=== PATIENT | male | born 1960 | race Asian ===

== ENCOUNTER 2023-10-26 09:20 | Emergency (ER) | payer OTHER, MEDICAID ==
[~2023-10-26] VITALS: Ht 162.6 cm; Wt 65.8 kg
[2023-10-26 09:23] VITALS: BP 145/80; PULSE 80; RESP 16; TEMP 97.6; O2SAT 95
[2023-10-26 11:03] LABS: BASOPHILS # (AUTO) 0.1 K/uL (0.00-0.22); BASOPHILS % (AUTO) 0.9 % (0.0-2.0); EOSINOPHILS % (AUTO) 0.5 % (0.0-4.0); HEMATOCRIT 38.9 % (36-52); LYMPHOCYTES # (AUTO) 1.1 K/uL (2.0-11.5); LYMPHOCYTES % (AUTO) 10.6 % (20.5-51.1); MEAN CORPUSCULAR HEMOGLOBIN 26 pg (27-31); MEAN CORPUSCULAR HGB CONC 34 g/dL (33-37); MEAN CORPUSCULAR VOLUME 78.2 fL (80-94); MONOCYTES # (AUTO) 0.6 K/uL (0.8-1.0); MONOCYTES % (AUTO) 5.5 % (1.7-9.3); NEUTROPHILS # (AUTO) 8.9 K/uL (1.8-7.7); NEUTROPHILS % (AUTO) 82.5 % (42.2-75.2); PLATELET COUNT (AUTO) 269 K/uL (140-450); RED BLOOD CELL COUNT(AUTO) 4.97 MIL/uL (4.20-6.10); RED CELL DISTRIBUTION WIDTH 14.1 % (11.6-13.7); WHITE BLOOD COUNT (AUTO) 10.8 K/uL (4.8-10.8)
[2023-10-26 11:24] LABS: ANION GAP 9.5 (8-16); CALCIUM 9.5 mg/dL (8.5-10.1); CARBON DIOXIDE 33.9 mmol/L (21-32); CREATININE 0.7 mg/dL (0.6-1.3); POTASSIUM 4.4 mmol/L (3.5-5.1)
[2023-10-26 11:38] LABS: APPEARANCE,URINE CLOUDY (CLEAR); BILIRUBIN,URINE NEGATIVE (NEGATIVE); BLOOD, URINE 3+ (NEGATIVE); COLOR,URINE RED (YELLOW); LEUKOCYTE ESTERASE ,URINE 2+ (NEGATIVE); NITRITE, URINE POSITIVE (NEGATIVE); PH,URINE 7.5 (5.0-9.0); PROTEIN,URINE 3+ (NEGATIVE); UGLUCOSE TRACE (NEGATIVE)
[2023-10-26 11:48] LABS: BACTERIA,URINE 10-30 (MOD) /HPF (None Seen); RBC,URINE 50-80 /HPF (0-5); SQUAMOUS EPITHELIAL CELL,UR 0-3 (FEW) /LPF (0-3 (FEW)); WBC,URINE 16-25 (MOD) /HPF (0-5)
[2023-10-26] MEDS ORDERED: NITR100C7 PO (12:05)
[2023-10-26 12:52] VITALS: BP 117/64; PULSE 72; RESP 17; TEMP 97.8; O2SAT 99
== END 2023-10-26 12:44 | disposition home or self-care (01) ==
LOC: MED 09:20
DX: N39.0 Urinary tract infection, site not specified (principal); R31.9 Hematuria, unspecified; Z79.899 Other long term (current) drug therapy
CPT/HCPCS: 36415; 51701; 80048; 81001; 85025; 87086; 99284

== ENCOUNTER 2023-11-21 06:35 | Inpatient (IN) | payer OTHER, MEDICAID ==
[~2023-11-21] VITALS: Ht 162.6 cm; Wt 63.5 kg
[~2023-11-21 06:35] MED LIST: NITR100C7 PO
[2023-11-21 06:48] VITALS: BP 158/88; PULSE 80; RESP 14; TEMP 97.2; O2SAT 96
[2023-11-21 07:30] VITALS: O2SAT 100
[2023-11-21 07:53] LABS: BASOPHILS # (AUTO) 0.1 K/uL (0.00-0.22); EOSINOPHILS # (AUTO) 0.2 K/uL (0-0.4); EOSINOPHILS % (AUTO) 1.9 % (0.0-4.0); HEMATOCRIT 42.5 % (36-52); HEMOGLOBIN 13.9 g/dL (12.0-18.0); LYMPHOCYTES # (AUTO) 1.4 K/uL (2.0-11.5); LYMPHOCYTES % (AUTO) 16.7 % (20.5-51.1); MEAN CORPUSCULAR HEMOGLOBIN 26 pg (27-31); MEAN CORPUSCULAR HGB CONC 33 g/dL (33-37); MEAN CORPUSCULAR VOLUME 79.6 fL (80-94); MONOCYTES # (AUTO) 0.5 K/uL (0.8-1.0); MONOCYTES % (AUTO) 5.8 % (1.7-9.3); NEUTROPHILS # (AUTO) 6.3 K/uL (1.8-7.7); NEUTROPHILS % (AUTO) 74.6 % (42.2-75.2); PLATELET COUNT (AUTO) 284 K/uL (140-450); RED BLOOD CELL COUNT(AUTO) 5.34 MIL/uL (4.20-6.10); RED CELL DISTRIBUTION WIDTH 14.4 % (11.6-13.7); WHITE BLOOD COUNT (AUTO) 8.4 K/uL (4.8-10.8)
[2023-11-21 08:08] LABS: ANION GAP 12.3 (8-16); CALCIUM 9.7 mg/dL (8.5-10.1); CARBON DIOXIDE 29.7 mmol/L (21-32); CREATININE 0.8 mg/dL (0.6-1.3)
[2023-11-21 08:10] LABS: ALBUMIN 3.9 g/dL (3.4-5.0); BILIRUBIN,DIRECT 0.2 mg/dL (0.0-0.3); TOTAL BILIRUBIN 0.6 mg/dL (0.0-1.0)
[2023-11-21] MEDS: KETOROLAC 30 MG/ML VIAL IVP ONE (08:19)
[2023-11-21] MEDS: MORPHINE SULFATE 4 MG/ML SYR IVP ONE (08:48)
[2023-11-21] MEDS: ONDANSETRON 4 MG/2 ML VIAL IVP ONE (08:48)
[2023-11-21] MEDS ORDERED: FINA5TAB5 PO (12:43)
[2023-11-21] MEDS ORDERED: NITR100C15 PO (12:43)
[2023-11-21] MEDS ORDERED: TAMS0.4C97 PO (12:43)
[2023-11-21] MEDS ORDERED: ONDANSETRON 4 MG/2 ML VIAL IVP PRN ×2 (12:55→15:30)
[2023-11-21] MEDS ORDERED: ACETAMINOPHEN 325 MG TAB PO PRN (12:55)
[2023-11-21] MEDS ORDERED: MORPHINE SULFATE 2 MG/ML SYR IVP PRN (12:55)
[2023-11-21] MEDS: NACL 0.9% 1,000 ML IV SCH (12:55)
[2023-11-21] MEDS ORDERED: HYDROcodone/APAP 5/325 MG 1 TAB TAB PO PRN (12:55)
[2023-11-21] MEDS ORDERED: MELATONIN 3 MG TAB PO PRN (12:55)
[2023-11-21] MEDS: fentaNYL citrate 0.05 MG/ML VIAL ONE (14:19)
[2023-11-21] MEDS: MIDAZOLAM 2 MG/2 ML VIAL ONE (14:19)
[2023-11-21] MEDS: BUPIVACAINE-MPF 0.25% 30 ML VIAL INJ ONE (14:20)
[2023-11-21] MEDS: ceFAZolin 1,000 MG VIAL ONE (14:28)
[2023-11-21] MEDS: LIDOCAINE 2% 100 MG/5 ML UJET TP ONE (14:32)
[2023-11-21] MEDS: LIDOCAINE 2% 100 MG/5 ML SYR IVP ONE (14:32)
[2023-11-21] MEDS: LIDOCAINE/EPI 1% 1:100000 20 ML VIAL INJ ONE (14:33)
[2023-11-21] MEDS ORDERED: MEPERIDINE 25 MG/ML SYR IVP PRN (15:30)
[2023-11-21] MEDS ORDERED: diphenhydrAMINE 50 MG/ML VIAL IVP PRN (15:30)
[2023-11-21] MEDS ORDERED: HYDROmorphone 1 MG/ML AMP IVP PRN (15:30)
[2023-11-21 16:00] VITALS: BP 89/49; PULSE 68; PULSE 69; RESP 12; TEMP 98.4; O2SAT 97
[2023-11-21] MEDS: METOCLOPRAMIDE 10 MG/2 ML INJ VIAL ONE (16:13)
[2023-11-21] MEDS: ONDANSETRON 4 MG/2 ML VIAL ONE (16:13)
[2023-11-21] MEDS: LACTATED RINGERS 1,000 ML IV SCH (16:56)
[2023-11-21 21:03] VITALS: BP 108/55; PULSE 85; RESP 18; TEMP 95.7; O2SAT 97
[2023-11-22] VITALS (7 sets, daily range): BP systolic 95–111; BP diastolic 50–60; PULSE 66–91; RESP 16–18; TEMP 97.2–99.6; O2SAT 93–100
[2023-11-22 06:37] LABS: BASOPHILS # (AUTO) 0.1 K/uL (0.00-0.22); BASOPHILS % (AUTO) 0.7 % (0.0-2.0); EOSINOPHILS # (AUTO) 0.3 K/uL (0-0.4); EOSINOPHILS % (AUTO) 3.7 % (0.0-4.0); HEMATOCRIT 33.2 % (36-52); LYMPHOCYTES # (AUTO) 1.7 K/uL (2.0-11.5); LYMPHOCYTES % (AUTO) 18.1 % (20.5-51.1); MEAN CORPUSCULAR HEMOGLOBIN 26 pg (27-31); MEAN CORPUSCULAR HGB CONC 33 g/dL (33-37); MEAN CORPUSCULAR VOLUME 78.6 fL (80-94); MONOCYTES # (AUTO) 0.7 K/uL (0.8-1.0); NEUTROPHILS # (AUTO) 6.4 K/uL (1.8-7.7); NEUTROPHILS % (AUTO) 69.5 % (42.2-75.2); PLATELET COUNT (AUTO) 230 K/uL (140-450); RED BLOOD CELL COUNT(AUTO) 4.22 MIL/uL (4.20-6.10); RED CELL DISTRIBUTION WIDTH 14.4 % (11.6-13.7); WHITE BLOOD COUNT (AUTO) 9.2 K/uL (4.8-10.8)
[2023-11-22 07:06] LABS: ALBUMIN 2.6 g/dL (3.4-5.0); ANION GAP 11.3 (8-16); CALCIUM 8.2 mg/dL (8.5-10.1); CREATININE 0.8 mg/dL (0.6-1.3); MAGNESIUM 1.8 mg/dL (1.8-2.4); PHOSPHORUS 3.8 mg/dL (2.5-4.9); POTASSIUM 4.3 mmol/L (3.5-5.1); TOTAL BILIRUBIN 0.9 mg/dL (0.0-1.0); TOTAL PROTEIN, SERUM 6.2 g/dL (6.4-8.2)
[2023-11-22 15:44] LABS: BILIRUBIN,URINE NEGATIVE (NEGATIVE); BLOOD, URINE 3+ (NEGATIVE); LEUKOCYTE ESTERASE ,URINE TRACE (NEGATIVE); NITRITE, URINE NEGATIVE (NEGATIVE); UGLUCOSE NEGATIVE (NEGATIVE); UROBILINOGEN,URINE 0.2 EU/dL (0.2 - 1)
[2023-11-22 15:49] LABS: COLOR,URINE RED (YELLOW)
[2023-11-22 16:04] LABS: APPEARANCE,URINE SL CLOUDY (CLEAR); PH,URINE 6.5 (5.0-9.0)
[2023-11-22 16:05] LABS: PROTEIN,URINE TRACE (NEGATIVE)
[2023-11-23] VITALS: BP 114/66; PULSE 64; PULSE 74; RESP 18; TEMP 98.7; O2SAT 96
[2023-11-23 04:00] VITALS: BP 117/61; PULSE 62; PULSE 64; RESP 18; TEMP 97.4; O2SAT 97
[2023-11-23 05:48] LABS: BASOPHILS # (AUTO) 0.1 K/uL (0.00-0.22); BASOPHILS % (AUTO) 0.6 % (0.0-2.0); EOSINOPHILS # (AUTO) 0.5 K/uL (0-0.4); EOSINOPHILS % (AUTO) 4.8 % (0.0-4.0); HEMATOCRIT 32.1 % (36-52); HEMOGLOBIN 10.7 g/dL (12.0-18.0); LYMPHOCYTES # (AUTO) 2.3 K/uL (2.0-11.5); MEAN CORPUSCULAR HEMOGLOBIN 26 pg (27-31); MEAN CORPUSCULAR HGB CONC 33 g/dL (33-37); MEAN CORPUSCULAR VOLUME 78.9 fL (80-94); MONOCYTES % (AUTO) 10.4 % (1.7-9.3); NEUTROPHILS % (AUTO) 61.2 % (42.2-75.2); PLATELET COUNT (AUTO) 231 K/uL (140-450); RED BLOOD CELL COUNT(AUTO) 4.07 MIL/uL (4.20-6.10); RED CELL DISTRIBUTION WIDTH 14.2 % (11.6-13.7); WHITE BLOOD COUNT (AUTO) 9.8 K/uL (4.8-10.8)
[2023-11-23 06:30] LABS: ALBUMIN 2.6 g/dL (3.4-5.0); ANION GAP 10.5 (8-16); CALCIUM 8.4 mg/dL (8.5-10.1); CARBON DIOXIDE 29.6 mmol/L (21-32); CREATININE 0.8 mg/dL (0.6-1.3); MAGNESIUM 1.9 mg/dL (1.8-2.4); PHOSPHORUS 3.5 mg/dL (2.5-4.9); POTASSIUM 4.1 mmol/L (3.5-5.1); TOTAL BILIRUBIN 0.9 mg/dL (0.0-1.0); TOTAL PROTEIN, SERUM 6.5 g/dL (6.4-8.2)
[2023-11-23 08:00] VITALS: BP 104/64; PULSE 60; RESP 16; TEMP 98.3; O2SAT 98
[2023-11-23 12:00] VITALS: BP 105/60; PULSE 63; RESP 18; TEMP 98; O2SAT 98
== END 2023-11-23 17:00 | disposition home health service (06) | DRG 726 ==
LOC: MED 06:35 → MTU 12:56 → MMU 13:06 → MTU 13:12
PROVIDERS: ADMIT Family Medicine; ATTEND Family Medicine
PROC: 0T9B40Z Drainage of Bladder with Drainage Device, Percutaneous Endoscopic Approach (ICD-10-PCS; principal; 2023-11-21 14:00)
DX: N40.1 Benign prostatic hyperplasia with lower urinary tract symptoms (principal); N32.0 Bladder-neck obstruction; R33.8 Other retention of urine
CPT/HCPCS: 36415; 80048; 80053; 80076; 81001; 82150; 83690; 83735; 84100; 85025; 87081; 96374; 96375; 99285; J0690; J0696; J1885; J2001; J2250; J2270; J2405; J2765; J3010; J3490; J7060